=== PATIENT | male | born 1935 | race Native Hawaiian/Other Pacific Islander ===

== ENCOUNTER 2016-05-29 10:09 | Outpatient (CLI) | payer OTHER, BC ==
[~2016-05-29 10:09] MED LIST: AMIT25TA22 PO; ASA FREE160 MG PO; CIPRO500 MG OR; COMBIVENT INH; FLUTMIS6 INH; LEVOTHROID75 MCG PO; PRILOSEC20 MG OR; SIMV20TA2 PO; SIMV40TA57 PO; VESICARE5 MG PO; [UNRECOGNIZED DRUG - REMARK] INH
[2016-05-29] MEDS ORDERED: AMIT10TA21 PO (10:34)
[2016-05-29] MEDS ORDERED: CITALOPRAM20 MG PO (10:34)
== END 2016-05-29 10:11 | disposition short-term general hospital (02) ==
LOC: AMB 10:09
DX: S51.012A Laceration without foreign body of left elbow, initial encounter (principal); S01.112A Laceration without foreign body of left eyelid and periocular area, initial encounter; W18.39XA Other fall on same level, initial encounter; Y92.098 Other place in other non-institutional residence as the place of occurrence of the external cause
CPT/HCPCS: A0425; A0427